=== PATIENT | male | born 1990 | race Caucasian/White ===

== ENCOUNTER 2016-05-02 07:49 | Emergency (ER) | payer BC, OTHER ==
[~2016-05-02] VITALS: Ht 165.1 cm; Wt 75.9 kg
[~2016-05-02 07:49] MED LIST: CRFL PO; FEXO1TAB46 PO; LANS30CA63 PO; MULTTAB58 PO; TYLOTC500 PO
[2016-05-02 08:00] VITALS: TEMP 36.5; Ht 165.1 cm; Wt 75.9 kg
[2016-05-02] MEDS ORDERED: LORAZEPAM 2 MG/ML 1 ML VIAL IV STA (08:30)
[2016-05-02 08:53] LABS: BASO % 0.6 %; BASO ABS # 0.05 K/uL (0-0.2); COMPLETE YES; EOS % 1.7 %; HEMATOCRIT 44.7 % (42-52); IG% 0.2 %; LYMPH % 29.8 %; LYMPH ABS # 2.69 K/uL (1.2-3.4); MEAN CELL VOLUME 83.1 fL (80-100); MEAN CORPUSCULAR HEMOGLOBIN 28.4 pg (25-34); MEAN CORPUSCULAR HGB CONC 34.2 g/dl (32-36); MEAN PLATELET VOLUME 10.3 fL (7.4-10.4); MONO % 7.4 %; NEUT % 60.3 %; PLATELET COUNT 281 K/uL (130-400); RED BLOOD COUNT 5.38 M/uL (4.7-6.1); WHITE BLOOD COUNT 9.02 K/uL (4.8-10.8)
--- NOTE | 2016-05-02 09:04 | DIAGNOSTIC IMAGING REPORT ---
CHEST 2 VIEWS ROUTINE CLINICAL HISTORY: blood tinged sputum dyspnea COMPARISON STUDY: 10/22/2013 FINDINGS: The bones soft tissues and hemidiaphragms are normal. The cardiomediastinal silhouette is normal. The lungs are clear. The pulmonary vasculature is normal. IMPRESSION: Negative chest. Electronically signed by: Tenzin Crane M.D. 05/02/2016 9:03 AM Dictated Date/Time: 05/02/2016 9:01 AM
[2016-05-02 09:11] LABS: BUN/CREATININE RATIO 18.8 (10-20); CALCIUM 9.4 mg/dl (8.5-10.1); CREATININE 0.94 mg/dl (0.60-1.40); POTASSIUM 3.4 mmol/L (3.5-5.1)
--- NOTE | 2016-05-02 09:44 | EMERGENCY ROOM VISIT NOTE ---
History First contact with patient: 08:21 Chief Complaint: ABDOMINAL PAIN Stated Complaint: BLOOD IN SALIVA, STOMACH CRAMPS Nursing Triage Summary: Pt c/o intestinal cramping x 1 month, dx IBS, but today concerned because last night he spit and there was "a tint of blood in the spit". States mucus in his nose has been clear so he doesn't believe blood is coming from there. Tint of blood in "spit" a second time and then again this morning and it seemed like there was more blood this morning. A week ago pt had vomiting. Pt states he feels like his throat has "an occasional burning or stinging sensation" not like with reflux. Hx GERD, omeprozole 40mg. Pt denies cough, c/o hoarseness and when he clears his throat the sputum is clear. Pt states "I have major anxiety and I take xanax but I don't have it with me, can I get a xanax or even a half of one?" Pt reports his girlfriend was dx with mono 4 weeks ago. History of Present Illness The patient is a 25 year old male who presents to the Emergency Room with complaints of blood in his saliva yesterday morning and this morning. The patient states it was less than a teaspoon in saliva both times he coughed up the blood. He has also had clear sputum since that time. The patient is very anxious and concerned about having esophageal cancer. His father last year from esophageal cancer. The patient has a history of GERD and had endoscopy performed 3 years ago which was normal. The patient does take medicine for his reflux. He does get heartburn symptoms on almost a daily basis. The patient also admits to having chronic sinus issues. He had sinus surgery. She has been using saline nasal spray since the area is very dry. He denies any ear pain or sore throat. He does get a scratchy feeling in his throat intermittently. The patient states that he is very anxious on a regular basis. He normally takes Ativan 0.5 mg on a when necessary basis. Review of Systems 10 system review was performed and was negative unless stated otherwise history of present illness. Past Medical/Surgical History Medical Problems: (1) Anxiety (2) GERD (gastroesophageal reflux disease) Family History FHx: esophageal cancer Social History Smoking Status: Never Smoker Alcohol Use: occasionally Marital Status: single Housing Status: lives with roommate Occupation Status: [employer] student Current/Historical Medications Scheduled Fexofenadine Hcl (Jacque), 180 MG PO DAILY Lansoprazole (Prevacid), 30 MG PO DAILY Multiple Vitamin (Multivitamin), 1 TAB PO DAILY Sucralfate (Carafate), 10 ML PO before meals Scheduled PRN Acetaminophen (Tylenol), 1,000 MG PO Q6 PRN for Pain or Fever Allergies Coded Allergies: Amoxicillin (Verified Allergy, Unknown, CLOSES HIS THROAT UP, 10/22/13) Penicillins (Verified Allergy, Unknown, CLOSES HIS THROAT UP, 10/22/13) Physical Exam Vital Signs Date Time Temp Pulse Resp B/P Pulse Ox O2 Delivery O2 Flow Rate FiO2 05/02/16 08:00 36.5 92 16 140/79 100 Room Air Physical Exam GENERAL: 25-year-old white male appears in no acute distress. MENTAL Status: Patient is alert and oriented 3. The patient does appear somewhat anxious. EYES: PERRLA. EOMs intact. EARS: Canals clear. TMs without fluid level noted. NOSE: Nasal mucosa with erythema and engorgement. PHARYNX: No erythema or edema noted. Airway is adequate NECK: Supple, no lymphadenopathy noted. No carotid bruits noted. LUNGS: Clear auscultation without wheezes rales or rhonchi. CARDIAC: Regular rate and rhythm without murmur. Pulses is full and equal throughout. ABDOMEN: Positive bowel sounds all 4 quadrants. Soft, nontender to palpation without organomegaly or masses. RECTAL: Anal sphincter tone intact. No internal masses noted. Stool guaiac was negative. Medical Decision & Procedures Laboratory Results 05/02/16 08:40 Red Blood Count 5.38, Mean Corpuscular Volume 83.1, Mean Corpuscular Hemoglobin 28.4, Mean Corpuscular Hemoglobin Concent 34.2, Mean Platelet Volume 10.3, Neutrophils (%) (Auto) 60.3, Lymphocytes (%) (Auto) 29.8, Monocytes (%) (Auto) 7.4, Eosinophils (%) (Auto) 1.7, Basophils (%) (Auto) 0.6, Neutrophils # (Auto) 5.44, Lymphocytes # (Auto) 2.69, Monocytes # (Auto) 0.67, Eosinophils # (Auto) 0.15, Basophils # (Auto) 0.05 05/02/16 08:40 Test 05/02/16 08:40 White Blood Count 9.02 K/uL (4.8-10.8) Red Blood Count 5.38 M/uL (4.7-6.1) Hemoglobin 15.3 g/dL (14.0-18.0) Hematocrit 44.7 % (42-52) Mean Corpuscular Volume 83.1 fL (80-100) Mean Corpuscular Hemoglobin 28.4 pg (25-34) Mean Corpuscular Hemoglobin Concent 34.2 g/dl (32-36) Platelet Count 281 K/uL (130-400) Mean Platelet Volume 10.3 fL (7.4-10.4) Neutrophils (%) (Auto) 60.3 % Lymphocytes (%) (Auto) 29.8 % Monocytes (%) (Auto) 7.4 % Eosinophils (%) (Auto) 1.7 % Basophils (%) (Auto) 0.6 % Neutrophils # (Auto) 5.44 K/uL (1.4-6.5) Lymphocytes # (Auto) 2.69 K/uL (1.2-3.4) Monocytes # (Auto) 0.67 K/uL (0.11-0.59) Eosinophils # (Auto) 0.15 K/uL (0-0.5) Basophils # (Auto) 0.05 K/uL (0-0.2) RDW Standard Deviation 40.2 fL (36.4-46.3) RDW Coefficient of Variation 13.3 % (11.5-14.5) Immature Granulocyte % (Auto) 0.2 % Immature Granulocyte # (Auto) 0.02 K/uL (0.00-0.02) Anion Gap 8.0 mmol/L (3-11) Est Creatinine Clear Calc Drug Dose 114.3 ml/min Estimated GFR () 130.1 Estimated GFR (Non- 112.2 BUN/Creatinine Ratio 18.8 (10-20) Calcium Level 9.4 mg/dl (8.5-10.1) Total Bilirubin 0.5 mg/dl (0.2-1) Direct Bilirubin 0.1 mg/dl (0-0.2) Aspartate Amino Transf (AST/SGOT) 15 U/L (15-37) Alanine Aminotransferase (ALT/SGPT) 28 U/L (12-78) Alkaline Phosphatase 109 U/L (45-117) Total Protein 8.2 gm/dl (6.4-8.2) Albumin 4.4 gm/dl (3.4-5.0) Lipase 115 U/L (73-393) Medications Administered Medications (Trade) Dose Ordered Sig/Dave Route Start Time Stop Time Status Last Admin Dose Admin Lorazepam (Ativan Inj) 0.5 mg NOW STAT IV 05/02/16 08:30 05/02/16 08:33 DC 05/02/16 08:45 0.5 MG ED Course The patient was evaluated. IV access was obtained. The patient was given Ativan 0.5 mg IV. CBC and differential, renal profile, LFTs and lipase levels were ordered. Labs are reviewed and were unremarkable. Chest x-ray was ordered and interpreted as above without any acute findings. The patient was informed of all findings and reassured there was nothing acute at this point. I told him if he was concerned about esophageal cancer that he needs to follow up with gastroenterology patient verbalized understanding and was discharged home in stable condition. Medical Decision Differential diagnosis include tuberculosis, chronic sinusitis, GERD, esophageal tear, esophagitis Impression Primary Impression: Chronic sinusitis Departure Information Dispostion Home / Self-Care Condition GOOD Referrals Cirilo Daniel M.D. (PCP) Forms HOME CARE DOCUMENTATION FORM, IMPORTANT VISIT INFORMATION Patient Instructions My [facility] [employer] Additional Instructions Continue current medications as prescribed. Continue nasal saline daily. Also recommend small sips of water frequently throughout the day. If you have persistent problems recommend follow-up with gastroenterology for further evaluation and treatment.
[2016-05-02 09:57] VITALS: BP 122/77; PULSE 95; O2SAT 97
[2016-05-02] MEDS ORDERED: PRLSR20 PO (10:08)
[2016-05-02] MEDS ORDERED: MISC4CAP (10:08)
[2016-05-02] MEDS ORDERED: ALPR1TAB3 PO (10:08)
== END 2016-05-02 10:20 | disposition home or self-care (01) ==
LOC: C.EDB 07:50
DX: J32.9 Chronic sinusitis, unspecified (principal); K21.9 Gastro-esophageal reflux disease without esophagitis; Z80.0 Family history of malignant neoplasm of digestive organs; Z79.899 Other long term (current) drug therapy